=== PATIENT | female | born 1975 | race Caucasian/White ===

== ENCOUNTER → 2017-11-19 | Outpatient (CLI) | payer OTHER | LOC: LAB SHORT 11:23 → LAB 11:23 | PROVIDERS: Registered Nurse Community Health | DX: Z12.4 Encounter for screening for malignant neoplasm of cervix (principal); N91.2 Amenorrhea, unspecified | CPT/HCPCS: 87624; G0123 ==

== ENCOUNTER 2021-08-07 17:59 | Inpatient (IN) | payer OTHER ==
[~2021-08-07] VITALS: Ht 157.5 cm; Wt 79.4 kg
[2021-08-07 19:15] LABS: Mean Corpuscular HGB 32.4 pg (26.0-34.0); Mean Corpuscular Volume 108 fL (80-100); NRBC ABSOLUTE 1.01 K/mm3 (0.00-0.02); NRBC Auto 4.5 /100 WBC (0.0-0.2); Platelet Count 58 K/mm3 (150-400); RDW Coefficient Variation 23.7 % (11.7-14.2); RDW Standard Deviation 93.7 fL (35.1-46.3); Red Blood Cell Count 1.85 M/mm3 (3.80-5.20); White Blood Cell Count 22.41 K/mm3 (4.00-11.30)
[2021-08-07 19:21] LABS: Mean Platelet Volume 12.5 fL (9.1-12.4)
[2021-08-07 19:48] LABS: Influenza A, PCR NEGATIVE (NEGATIVE); Influenza B, PCR NEGATIVE (NEGATIVE); Resp Syncytial Virus, PCR NEGATIVE (NEGATIVE)
[2021-08-07 19:50] LABS: SARS-Cov-2 (COVID-19) PCR, MMC POSITIVE (NEGATIVE)
[2021-08-07 19:54] LABS: BAND PERCENT MAN 64 % (0-8); BASOPHILS PERCENT MAN 0 % (0-2); EOSINOPHILS PERCENT MAN 0 % (0-6); LYMPHOCYTES ABSOLUTE MAN 2.24 K/mm3 (0.84-5.20); LYMPHOCYTES PERCENT MAN 10 % (21-46); METAMYELOCYTE ABSOLUTE MAN 0.44 K/mm3 (0.00-0.00); METAMYELOCYTE PERCENT MAN 2 % (0-0); MONOCYTES ABSOLUTE MAN 0.44 K/mm3 (0.16-1.47); MONOCYTES PERCENT MAN 2 % (4-13); MYELOCYTE ABSOLUTE MAN 0.67 K/mm3 (0.00-0.00); MYELOCYTE PERCENT MAN 3 % (0-0); NEUTROPHILS ABSOLUTE MAN 18.15 K/mm3 (1.96-9.15); SEG NEUTROPHILS PERCENT MAN 17 % (41-73); TOTAL CELLS COUNTED 100
[2021-08-07 19:55] LABS: OTHER CELL PERCENT MAN 2 % (0-0)
[2021-08-07 20:01] LABS: Albumin, Blood 1.3 g/dL (3.4-5.0); Albumin/Globulin Ratio 0.3 (0.8-1.8); Bilirubin, Total 1.6 mg/dL (0.1-1.0); Bun/Creatinine Ratio 51.1 (12.0-20.0); Calcium, Blood 7.9 mg/dL (8.5-10.1); Creatinine, Blood 1.35 mg/dL (0.40-1.00); Globulin, Blood 5.1 g/dL (2.2-4.0); Potassium, Blood 4.5 mmol/L (3.5-5.5); Total Protein, Blood 6.4 g/dL (6.4-8.2)
[2021-08-07] MEDS ORDERED: LENVIMA1 EA10 PO (21:33)
[2021-08-07] MEDS ORDERED: OMEP20ER PO (21:33)
[2021-08-07] MEDS ORDERED: Norethindrone Ac5 MG PO (21:33)
[2021-08-07] MEDS ORDERED: METFORMIN HCL500 M2 PO (21:33)
--- NOTE | 2021-08-08 03:39 | NUR ---
UPDATE PT REPORTING SEVERE PAIN, VOMITING,HYPOTENSIVE WITH A MAP BELOW 65. PHYSICIAN NOTIFIED. ORDERS FOR DILAUDID 1-2 MG, SEE EMAR. PHENERGAN. ORDERS FOR PT TO BE DNR, PT WERE TO BEGIN HOSPICE TREATMENT 08/09/20. NO PLANS AT THIS TIME FOR MEDICATIONS TO MARY T[place] HYPOTENISVE STATE. INSTRUCTED TO INFORM PHYSICIAN IF BP CONT TO DECLINE. CAREGIVER/AUNT AT BEDSIDE WITH PT. INFORMED FAMILY THAT DIE BARBER COULD BE NOTIFIED. FAMILY DECLINED AT THIS TIME. WILL CONT TO MONITOR
[2021-08-08 05:55] LABS: Hematocrit 21.6 % (33.0-51.0); Hemoglobin 6.7 g/dL (11.5-16.0); Mean Corpuscular HGB 31.8 pg (26.0-34.0); NRBC ABSOLUTE 0.89 K/mm3 (0.00-0.02); NRBC Auto 4.5 /100 WBC (0.0-0.2); RDW Coefficient Variation 23.6 % (11.7-14.2); RDW Standard Deviation 83.4 fL (35.1-46.3); Red Blood Cell Count 2.11 M/mm3 (3.80-5.20); White Blood Cell Count 19.74 K/mm3 (4.00-11.30)
--- NOTE | 2021-08-08 05:57 | NUR ---
SHIFT SUMMARY PT ALERT TO SELF, LOCATION, REASON FOR BEING ADMITTED TO HOSPITAL, CONFUSED ON YEAR. CAREGIVER AT BEDSIDE. 1 UNIT OF PRBC'S GIVEN, SEE EHR. AUNT/CAREGIVER AT BEDSIDE AT THIS TIME. AUNT INFORMS THIS RN THAT PLAN WAS FOR PT TO BEGIN HOSPICE CARE TOMORROW AFTER STOPPING CHEMOTHERAPY LAST WEEK. PHYSICIAN AWARE. HOSPICE REFERRAL AND PALLIATIVE CONSULTED. LEFT MESSAGE WITH PALLIATIVE CARE DURING SHIFT. PT REPORTS PAIN AND HAS SEVERE N/V, MEDICATED, SEE EMAR. PT RESTING AT THIS TIME. MEDIPORT ACCESSED PER PHYSICIAN ORDER. PT ABLE TO ASSIST IN TURNS IN BED. PT HAD ONE UNMEASURED VOID IN BED WHEN VOMITTING. PHYSICIAN NOTIFIED OF PT HAVING LARGE AMOUNTS OF EMESIS, PLAN FOR NG IF PT AGREED. PT REFUSED AT THIS TIME. ORDER TO HAVE LAM PLACED, PT REFUSING AT THIS TIME. OXYGEN SATURATION MAINTAINED ABOVE 92% ON 4 L VIA NC. BP HYPOTENSIVE, MAP BELOW 65 AT TIMES. PHYSICIAN AWARE. HR STABLE. NO CP OR PRESSURE REPORTED. WILL CONT TO MONITOR UNTIL REPORT IS GIVEN TO DAYSHIFT RN.
[2021-08-08 06:06] LABS: Mean Corpuscular Volume 102 fL (80-100)
[2021-08-08 06:08] LABS: Platelet Count 39 K/mm3 (150-400)
[2021-08-08 06:10] LABS: Albumin, Blood 1.7 g/dL (3.4-5.0); Albumin/Globulin Ratio 0.4 (0.8-1.8); Bilirubin, Total 1.7 mg/dL (0.1-1.0); Bun/Creatinine Ratio 48.1 (12.0-20.0); Calcium, Blood 7.1 mg/dL (8.5-10.1); Creatinine, Blood 1.6 mg/dL (0.40-1.00); Globulin, Blood 4.4 g/dL (2.2-4.0); Potassium, Blood 4.7 mmol/L (3.5-5.5); Total Protein, Blood 6.1 g/dL (6.4-8.2)
--- NOTE | 2021-08-08 06:20 | NUR ---
UPDATE PHYSICIAN NOTIFIED PT IS CURRENTLY HALLUCINATING IN ROOM WITH VISUAL HALLUCINATIONS. PT NOTIFIED OF CRITICAL PLT LEVEL AND HGB. ORDERS FOR 1 UNIT OF PRBC'S AT THIS TIME.
[2021-08-08 06:34] LABS: BAND PERCENT MAN 63 % (0-8); BASOPHILS PERCENT MAN 0 % (0-2); EOSINOPHILS PERCENT MAN 0 % (0-6); LYMPHOCYTES ABSOLUTE MAN 1.57 K/mm3 (0.84-5.20); LYMPHOCYTES PERCENT MAN 8 % (21-46); METAMYELOCYTE ABSOLUTE MAN 0.39 K/mm3 (0.00-0.00); METAMYELOCYTE PERCENT MAN 2 % (0-0); MONOCYTES ABSOLUTE MAN 0.59 K/mm3 (0.16-1.47); MONOCYTES PERCENT MAN 3 % (4-13); NEUTROPHILS ABSOLUTE MAN 16.18 K/mm3 (1.96-9.15); SEG NEUTROPHILS PERCENT MAN 19 % (41-73); TOTAL CELLS COUNTED 100
[2021-08-08 06:35] LABS: MYELOCYTE ABSOLUTE MAN 0.98 K/mm3 (0.00-0.00); MYELOCYTE PERCENT MAN 5 % (0-0)
--- NOTE | 2021-08-08 07:24 | NUR ---
LVM for palliative care regarding pt. Pt has metastatic cancer and was planning to go hospice outpt on . Pt is DNR at this time and having low BP and low h/h. Pt aunt is in room with pt. I updated Dr. Porter on the case and she said to give blood to help increas BP and control pain until palliative can see pt, IV morphine order added. Pt is COVID + and on 4L at this time. Pt aunt is at beside and is very attentive to pt helping with cares.
--- NOTE | 2021-08-08 08:06 | NUR ---
BLOOD INFUSION STARTED 0800. LUNGS DIMINSHED IN LOWER AND CLEAR IN UPPER. STARTING AT 75ML/HR
--- NOTE | 2021-08-08 08:16 | NUR ---
VSS ON 2L, PT APPEARS MORE COMFORTABLE AFTER IV MORPHINE. BLOOD IS RUNNING AT 150ML/HR NOW. REPOSITIONED AND BRIEFS CHANGED. PT IS ONLY ORIENTED TO SELF AT THIS TIME. LUNGS STILL REMAIN DIMINISHED IN LOWER AND CLEAR IN UPPER. ABDOMEN IS VERY DISTENDED AND HARD TO HEAR ANY BOWEL SOUNDS AT THIS TIME. PT AUNT MOI IS AT BEDSIDE ATTENTIVE TO PT AT THIS TIME.
--- NOTE | 2021-08-08 10:04 | NUR ---
Pt has been transitioned to Comfort Care. IV dilauded given and seems to work well, pt sleeping comfortable after phenergan and dilaudid. Family memebers have come in to see pt, aunt, uncle and mother are at bedside.
--- NOTE | 2021-08-08 11:08 | NUR ---
Pt has comfort care orders in place. Pt looks comfortable and is sleeping at this time. IV dilaudid and phenergan together seemed to really help make her comfortable. Family members are at bedside. Comfort cart ordered by palliative nurse, will take in when arrives from kitchen.
--- NOTE | 2021-08-08 11:14 | NUR ---
Spoke with Pt's Primary RN and Dr Porter. Discussed case and concerns. Pt has stage IV metastatic cancer and she is wanting to focus on comfort. Multiple visits this AM. Pt initially significantly painful. Pt's aunt initially at bedside and eventually Pt's mother arrived. Discussed comfort care and educated on comfort care philosophy with V/U made by family and Pt. Pt and family elect comfort care. Discussed the poetential need to consider hospice once Pt's symptoms are managed. Offered therapeutic listening as Pt's mother expresses concerns regarding her ability to care for Pt. Discussed hospice team approach and equipment available. After comfort medications are administered Pt appears comfortable. Placed comfort care order, comfort care order set, and D/C maintenance medications per V/O from Dr Porter. Palliative Care will remain available for symptom management and supportive visits.
--- NOTE | 2021-08-08 12:08 | NUR ---
PT REMAINS COMFORTABLE AT THIS TIME. SLEEPING WITH FAMILY AT BEDSIDE.
--- NOTE | 2021-08-08 13:53 | NUR ---
Spiritual care visit conducted. Patient is lying in bed and sleeping. Pt's mother, aunt and uncle are bedside. They tell me about pt's medical history, the events that led to the comfort care status change and what they expect going forward. I conduct a life review of pt and also her about her character and love for people and animals. I also learn of pt's love for God and angels. Family are tearful at times and express the deep love they have for the pt. I provide empathetic listening, gentle encouragement, anticipatory grief support, recitation of scripture and prayer. Family responds well and shos signs of being comforted. I will continue to remain available to patient and family.
--- NOTE | 2021-08-08 14:14 | NUR ---
Pt is sleeping comfortably, no signs of discomfort. Family is at bedside.
--- NOTE | 2021-08-08 15:26 | NUR ---
Pt groining and has furrowed brow, 1mg of dilauded given.
--- NOTE | 2021-08-08 16:15 | NUR ---
PT IS SLEEPING COMFORTABLY, PRN DILAUDID WAS GIVEN ABOUT AN HOUR AGO AND PT STILL REMAINS COMFORTABLE. FAMILY IS AT BEDSIDE.
--- NOTE | 2021-08-08 18:04 | NUR ---
Pt appears comfortable at this time, sleeping peacefully. Pt did groan when moving to check brief. Floated left hip to shift weight. Family remains at bedside.
--- NOTE | 2021-08-08 18:05 | NUR ---
Shift summary: Comfort care orders were placed around 1000. Pt received 1 unit of blood this AM. SBP soft 80-90s in AM prior to comfort care orders. Hemaglobin was 6 this AM, 1 unit PRBC given. IV dilaudid and phenergen worked well for pain in AM. IV dilaudid given x2 and phenergen x1 as well as morphine given x1. Edgardo from palliative team said to trial roxanol tonight to see if that will cover her pain for when she will need to d/c with hospice rescue meds. If roxanol does not cover pain, then they might have to get oral dilaudid. Multiple family members have come in to see pt.
== END 2021-08-09 04:23 | DRG 441 ==
LOC: ER 17:59 → EDBEDREQ 23:23 → PCU 23:42
PROVIDERS: Emergency Medicine; ADMIT Internal Medicine
PROC: 8E0ZXY6 Isolation (ICD-10-PCS; principal; 2021-08-07)
PROC: XW033E5 Introduction of Remdesivir Anti-infective into Peripheral Vein, Percutaneous Approach, New Technology Group 5 (ICD-10-PCS; 2021-08-07)
PROC: 3E0333Z Introduction of Anti-inflammatory into Peripheral Vein, Percutaneous Approach (ICD-10-PCS; 2021-08-07)
PROC: 30233N1 Transfusion of Nonautologous Red Blood Cells into Peripheral Vein, Percutaneous Approach (ICD-10-PCS; 2021-08-07)
DX: K75.0 Abscess of liver (principal); U07.1 COVID-19; K56.609 Unspecified intestinal obstruction, unspecified as to partial versus complete obstruction; C56.9 Malignant neoplasm of unspecified ovary; C78.7 Secondary malignant neoplasm of liver and intrahepatic bile duct; Z66 Do not resuscitate; Z51.5 Encounter for palliative care; E86.0 Dehydration; E11.9 Type 2 diabetes mellitus without complications; D69.6 Thrombocytopenia, unspecified; D63.0 Anemia in neoplastic disease; Z92.21 Personal history of antineoplastic chemotherapy
CPT/HCPCS: 0241U; 36415; 36430; 71045; 74176; 80053; 82947; 83690; 83880; 85025; 86850; 86900; 86901; 86923; 96361; 96365; 96375; 99285-25; A9270; J0248; J1100; J1170; J2270; J2405; J2543; J2550; J3010; J7030; J7050; P9016; P9046